=== PATIENT | male | born 1980 | race Two or more races ===

== ENCOUNTER 2020-01-12 01:31 | Emergency (ER) | payer MEDICAID ==
[~2020-01-12] VITALS: Ht 177.8 cm; Wt 77.0 kg
[2020-01-12] MEDS ORDERED: ACETAMINOPHEN WITH CODEINE 300/30MG TABLET PO ONE (02:30)
[2020-01-12 08:00] VITALS: BP 102/71
== END 2020-01-12 08:36 | disposition left against medical advice (07) ==
LOC: ER 01:31
DX: N47.2 Paraphimosis (principal)
CPT/HCPCS: 54450; 99283; 99284